=== PATIENT | female | born 1990 | race Caucasian/White ===

== ENCOUNTER 2016-08-13 18:46 | Emergency (ER) | payer OTHER ==
[2016-08-13 19:03] VITALS: BP 109/60; PULSE 79; TEMP 98.1; BMI 18.2
--- NOTE | 2016-08-13 20:21 | PDOC ---
History of Present Illness - General Chief Complaint: Cold Symptoms Stated Complaint: SINUS INFECTION Time Seen by Provider: 08/13/16 20:00 History Source: Patient Exam Limitations: No Limitations - History of Present Illness Initial Comments: 08/13/16 20:15 Patient is here with complaints of frontal and maxillary sinus pressure. Denies fever, denies purulent drainage from her nose, but is concerned about a possible infection. has some crackling in her right ear. His taken no medication other than Tylenol for pain relief. suffers from ALLERGIES but has taken no medication for relief of same. Timing/Duration: reports: changing over time, getting worse Severity: reports: mild Associated Symptoms: reports: denies symptoms, earache, facial pain, headache. denies: cough, dizziness, fever/chills Past History - Travel Traveled outside of the country in the last 30 days: No Close contact w/someone who was outside of country & ill: No - Past Medical History Allergies/Adverse Reactions: Allergies Allergy/AdvReac Type Severity Reaction Status Date / Time No Known Drug Allergies Allergy Verified 08/13/16 18:59 GENERAL ANESTHESIA AdvReac Severe Uncoded 08/13/16 18:59 Home Medications: Ambulatory Orders Fluticasone Propionate [Flovent Diskus] 250 mcg IH PRN 01/14/16 Clobetasol Propionate/Emoll [Clobetasol Emollient 0.05% Crm] 45 gm TP BID #1 cream..g. 05/19/16 Cetirizine HCl/Pseudoephedrine [Allergy+Congestion Relf-D Tab] 1 each PO DAILY # 30 tab 08/13/16 Anemia: No Asthma: Yes Cancer: No Cardiac Disorders: No CVA: No COPD: No CHF: No Dementia: No Diabetes: No (? HYPOGLYCEMIA) GI Disorders: No Disorders: No HTN: No (?HYPOTENSION) Hypercholesterolemia: No Liver Disease: No Seizures: No Thyroid Disease: No - Surgical History Orthopedic Surgery: Yes (FOOT SURGERY @13Y/O IN [facility]) - Immunization History Immunization Up to Date: Yes - Psycho/Social/Smoking Cessation Hx Anxiety: No Suicidal Ideation: No Smoking History: Never smoked Have you smoked in the past 12 months: No Information on smoking cessation initiated: No Hx Alcohol Use: No Drug/Substance Use Hx: No Substance Use Type: None Respiratory Specific PMHX - Complaint Specific PMHX Angina: No Review of Systems - Review of Systems Able to Perform ROS?: Yes Is the patient limited [place] proficient: Yes Constitutional: Yes: Symptoms Reported, See HPI, Malaise. No: Fever, Loss of Appetite HEENTM: Yes: Symptoms Reported, See HPI, Eye Pain, Nose Congestion Respiratory: Yes: Cough. No: Wheezing ABD/GI: No: Symptoms Reported Musculoskeletal: No: Symptoms Reported All Other Systems: Reviewed and Negative *Physical Exam - Vital Signs Last Vital Signs Temp Pulse Resp BP Pulse Ox 98.1 F 79 18 109/60 100 08/13/16 19:00 08/13/16 19:00 08/13/16 19:00 08/13/16 19:00 08/13/16 19:00 - Physical Exam General Appearance: Yes: Nourished, Appropriately Dressed, Apparent Distress HEENT: positive: PETER, Rhinorrhea. negative: TMs Normal (congested but landmarks visualized ), Pharynx Normal, Pharyngeal Erythema (cobblestone appearance prominent), Tonsillar Erythema Neck: positive: Supple. negative: Tender, Lymphadenopathy (R), Lymphadenopathy (L) Respiratory/Chest: positive: Lungs Clear, Normal Breath Sounds. 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 No evidence of bacterial infection therefore we'll treat congestion with antihistamines and decongestants and conservative measures. Will refer to ENT *DC/Admit/Observation/Transfer Diagnosis at time of Disposition: Sinus headache Allergic rhinitis Qualifiers: Allergic rhinitis seasonality: unspecified seasonality Allergic rhinitis trigger: unspecified Qualified Code(s): J30.9 - Allergic rhinitis, unspecified - Discharge Dispostion Disposition: HOME Condition at time of disposition: Stable Admit: No - Patient Instructions Printed Discharge Instructions: DI for Allergic Rhinitis Additional Instructions: Rest, drink lots of fluids: Teas, water, soups Saltwater gargles. Consider humidifier in room at night Steamy showers/seem to face break up mucus Avoid contact with allergens, exposure to pollens, close windows on a windy day Lots of handwashing and good hygiene Continue [id number] medications for symptomatic relief- may use allergic eyedrops for itching I Continue antihistamines daily until pollen season is over; Zyrtec, Claritin, Fannie during the daytime and Benadryl at nighttime as will make sleepy Tylenol or Motrin for fever and pain Followup with private physician in one to 2 days as needed Consider following up with an purchasing officer/multiplex operator for skin testing and possible allergy shots Return to emergency department for worsened symptoms, fevers, dehydration
[2016-08-13] MEDS ORDERED: KETOROLAC TROMETHAMINE 60 MG/2 ML VIAL ONE (20:32)
[2016-08-13] MEDS ORDERED: KETOROLAC TROMETHAMINE 60 MG/2 ML VIAL IM ONE (21:21)
== END 2016-08-13 21:25 | disposition home or self-care (01) ==
LOC: JERFT 18:46
PROC: 3E0233Z Introduction of Anti-inflammatory into Muscle, Percutaneous Approach (ICD-10-PCS; principal; 2016-08-13)
DX: J30.89 Other allergic rhinitis (principal)
CPT/HCPCS: 96372; 99281-25

== ENCOUNTER 2016-08-21 01:36 | Emergency (ER) | payer OTHER ==
[2016-08-21 01:50] VITALS: BP 123/85; PULSE 82; TEMP 98; BMI 18.2
--- NOTE | 2016-08-21 02:40 | PDOC ---
History of Present Illness - General Stated Complaint: ALLERGIC REACTION Time Seen by Provider: 08/21/16 01:44 History Source: Patient, Significant Other Exam Limitations: No Limitations - History of Present Illness Initial Comments: 08/21/16 02:35 26yo Female patient presents to ED c/o allergic reaction. Patient states she is allergic to general anesthesia, and she tried to put oragel on buccal cold sore approx 1.5 hours ago. Patient called 911 when she began to experience palpitations, and numb throat. Denies any other complaints at this time. LNMP: 2 weeks ago. Timing/Duration: 1-3 hours Severity: moderate Modifying Factors: worse with: cold therapy, eating, immobilization, medication , movement, rest, other Associated Symptoms: reports: other (Palpitations ). denies: cough, fever/ chills, headaches, nausea/vomiting, seizure, shortness of breath, weakness Past History - Travel Traveled outside of the country in the last 30 days: No Close contact w/someone who was outside of country & ill: No - Past Medical History Allergies/Adverse Reactions: Allergies Allergy/AdvReac Type Severity Reaction Status Date / Time No Known Drug Allergies Allergy Verified 08/13/16 18:59 GENERAL ANESTHESIA AdvReac Severe Uncoded 08/13/16 18:59 Home Medications: Ambulatory Orders Fluticasone Propionate [Flovent Diskus] 250 mcg IH PRN 01/14/16 Clobetasol Propionate/Emoll [Clobetasol Emollient 0.05% Crm] 45 gm TP BID #1 cream..g. 05/19/16 Cetirizine HCl/Pseudoephedrine [Allergy+Congestion Relf-D Tab] 1 each PO DAILY # 30 tab 08/13/16 Anemia: No Asthma: Yes Cancer: No Cardiac Disorders: No CVA: No COPD: No CHF: No DVT: No Dementia: No Diabetes: No (? HYPOGLYCEMIA) Dialysis: No GI Disorders: No Disorders: No HTN: No (?HYPOTENSION) Hypercholesterolemia: No HIV: No Kidney Stones: No Liver Disease: No Psychiatric Problems: No Seizures: No Thyroid Disease: No Lung CA: No - Surgical History Abdominal Surgery: No Appendectomy: No Cardiac Surgery: No Cholecystectomy: No Gastric Stapling: No GI Surgery: No Lung Surgery: No Orthopedic Surgery: Yes (FOOT SURGERY @13Y/O IN [place]) - Immunization History Td Vaccination: Yes Immunization Up to Date: Yes - Psycho/Social/Smoking Cessation Hx Anxiety: No Suicidal Ideation: No Smoking History: Never smoked Have you smoked in the past 12 months: No Information on smoking cessation initiated: No Hx Alcohol Use: No Drug/Substance Use Hx: No Substance Use Type: None Review of Systems - Review of Systems Able to Perform ROS?: Yes Is the patient limited Spanish proficient: No Constitutional: No: Chills, Fever HEENTM: Yes: Other (Cold Sore). No: Blurred Vision, Double Vision, Nose Congestion, Throat Pain, Throat Swelling, Mouth Pain, Dental Problems, Difficulty Swallowing, Mouth Swelling Respiratory: No: Cough, Shortness of Breath, Stridor, Wheezing Cardiac (ROS): Yes: Palpitations. No: Chest Pain, Lightheadedness, Chest Tightness ABD/GI: No: Constipated, Diarrhea, Nausea, Poor Appetite, Poor Fluid Intake, Vomiting Musculoskeletal: No: Back Pain Integumentary: No: Erythema Neurological: No: Headache, Numbness, Paresthesia, Seizure, Tingling, Tremors, Weakness, Unsteady Gait, Ataxia All Other Systems: Reviewed and Negative *Physical Exam - Vital Signs Last Vital Signs Temp Pulse Resp BP Pulse Ox 98 F 82 18 123/85 100 08/21/16 01:38 08/21/16 01:38 08/21/16 01:38 08/21/16 01:38 08/21/16 01:38 - Physical Exam General Appearance: Yes: Nourished, Appropriately Dressed. No: Apparent Distress, Mild Distress, Moderate Distress, Severe Distress HEENT: positive: EOMI, PETER, Normal ENT Inspection, Normal Voice, Symmetrical, TMs Normal, Pharynx Normal. negative: Nasal Congestion, Rhinorrhea, Sinus Tenderness, TM Bulging, TM Dull, TM Erythema, Excessive drooling Neck: positive: Trachea midline, Normal Thyroid, Supple. negative: Stridor, Lymphadenopathy (R), Lymphadenopathy (L), Rigidity Respiratory/Chest: positive: Lungs Clear, Normal Breath Sounds. negative: Respiratory Distress, Accessory Muscle Use, Labored Respiration, Rapid RR, Rhonchi, Stridor, Wheezing Cardiovascular: positive: Regular Rhythm, Regular Rate. negative: Edema, JVD Gastrointestinal/Abdominal: positive: Normal Bowel Sounds, Soft. negative: Distended, Guarding, Rebound, Tenderness Musculoskeletal: positive: Normal Inspection. negative: CVA Tenderness Extremity: positive: Normal Capillary Refill, Normal Inspection, Normal Range of Motion. negative: Pedal Edema, Swelling Integumentary: positive: Normal Color, Dry, Warm. 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 RETURN IF SYMPTOMS WORSEN OR ANY CONCERNS FOR FURTHER EVALUATION. COLD LIQUIDS FOR COLD SORE IN MOUTH. NO HOT LIQUIDS. SYMPTOMS SHOULD PAST WITHIN 5-7 DAYS MORE. Print Language: CHINESE - Post Discharge Activity Work/School Note: Back to Work
[2016-08-21 03:11] LABS: URINE APPEARANCE CLEAR; URINE BILIRUBIN NEGATIVE (NEGATIVE); URINE BLOOD NEGATIVE (NEGATIVE); URINE COLOR STRAW; URINE GLUCOSE (UA) NEGATIVE (NEGATIVE); URINE KETONE NEGATIVE (NEGATIVE); URINE LEUK ESTERASE NEGATIVE (NEGATIVE); URINE NITRITE NEGATIVE (NEGATIVE); URINE PROTEIN NEGATIVE (NEGATIVE); URINE UROBILINOGEN NEGATIVE E.U./dl (0.2-1.0)
== END 2016-08-21 03:37 | disposition home or self-care (01) ==
LOC: JER 01:36
DX: R00.2 Palpitations (principal); T39.8X5A Adverse effect of other nonopioid analgesics and antipyretics, not elsewhere classified, initial encounter; Y92.038 Other place in apartment as the place of occurrence of the external cause
CPT/HCPCS: 81003; 84703; 99282-25

== ENCOUNTER 2016-10-25 22:45 | Emergency (ER) | payer OTHER ==
[2016-10-26 02:10] VITALS: BP 107/70; PULSE 113; TEMP 98.2; BMI 18.2
[2016-10-26] MEDS ORDERED: IBUPROFEN 600 MG TABLET (FP) PO ONE ×2 (02:26→03:03)
--- NOTE | 2016-10-26 03:30 | PDOC ---
[id number] [id number] RESPIRATORY Time Seen by Provider: 10/26/16 02:03 History Source: Patient - History of Present Illness Initial Comments: 10/26/16 02:29 26 year old female with cough, fever and chest pain x 3 days. seen by pmd today started on ceftin and zyrtec. patient with cough and pain on respiration. patient requesting medication for cough. denies NVD, abdominal pain and urinary symptoms. no pmhx Past History - Past Medical History Allergies/Adverse Reactions: Allergies Allergy/AdvReac Type Severity Reaction Status Date / Time No Known Drug Allergies Allergy Verified 08/13/16 18:59 GENERAL ANESTHESIA AdvReac Severe Uncoded 08/13/16 18:59 Home Medications: Ambulatory Orders Cefuroxime Axetil [Cefuroxime] 500 mg PO BID 10/26/16 Cetirizine HCl [Zyrtec -] 10 mg PO DAILY 10/26/16 Fluticasone Prop 0.05% Nasal [Flonase -] 1 - 2 spray NS BID #1 spray.pump Guaifenesin/Dextromethorphan [Congesta Dm 400-20 mg Tab] 1 each PO BID #10 tablet 10/26/16 Guaifenesin AC [Robitussin AC] 10 ml PO TID #100 ml MDD 30 10/27/16 Oseltamivir Phosphate [Tamiflu -] 75 mg PO BID #10 capsule 10/27/16 Ondansetron [Ondansetron Odt] 8 mg PO TID #30 tab.rapdis 10/28/16 Anemia: No Asthma: Yes Cancer: No Cardiac Disorders: No CVA: No COPD: No CHF: No DVT: No Dementia: No Diabetes: No (? HYPOGLYCEMIA) Dialysis: No GI Disorders: No Disorders: No HTN: No (?HYPOTENSION) Hypercholesterolemia: No HIV: No Kidney Stones: No Liver Disease: No Psychiatric Problems: No Seizures: No Thyroid Disease: No Lung CA: No - Surgical History Abdominal Surgery: No Appendectomy: No Cardiac Surgery: No Cholecystectomy: No Gastric Stapling: No GI Surgery: No Lung Surgery: No Orthopedic Surgery: Yes (FOOT SURGERY @13Y/O IN [facility] [place]) - Immunization History Td Vaccination: Yes Immunization Up to Date: Yes - Psycho/Social/Smoking Cessation Hx Anxiety: No Suicidal Ideation: No Smoking History: Unknown if ever smoked Have you smoked in the past 12 months: No Information on smoking cessation initiated: No Hx Alcohol Use: No Drug/Substance Use Hx: No Substance Use Type: None Respiratory Specific PMHX - Complaint Specific PMHX Angina: No Review of Systems - Review of Systems Constitutional: Yes: Chills, Fever HEENTM: Yes: Throat Pain Respiratory: Yes: Cough, Productive cough Cardiac (ROS): No: Symptoms Reported, See HPI, Chest Pain, Edema, Irregular Heart Rate, Lightheadedness, Palpitations, Syncope, Chest Tightness, Other ABD/GI: No: Symptoms Reported, See HPI, Abdominal Distended, Abd. Pain w/ defecation, Blood Streaked Bowels, Constipated, Diarrhea, Difficulty Swallowing , Nausea, Poor Appetite, Poor Fluid Intake, Rectal Bleeding, Vomiting, Indigestion, Abdominal cramping, Tarry Stools, Other : No: Symptoms Reported, See HPI, Burning, Dysuria, Discharge, Frequency, Flank Pain, Hematuria, Incontinence, Pain, Urgency, Testicular Mass, Testicular Swelling, Lesions, Testicular Pain, Other *Physical Exam - Vital Signs Last Vital Signs Temp Pulse Resp BP Pulse Ox 98.2 F 113 H 14 107/70 100 10/26/16 02:08 10/26/16 02:08 10/26/16 02:08 10/26/16 02:08 10/26/16 02:08 - Physical Exam General Appearance: Yes: Appropriately Dressed HEENT: positive: Pharyngeal Erythema ( with exudate) Respiratory/Chest: positive: Lungs Clear, Normal Breath Sounds Cardiovascular: positive: Regular Rhythm, Regular Rate Gastrointestinal/Abdominal: positive: Normal Bowel Sounds, Soft Musculoskeletal: positive: Normal Inspection Extremity: positive: Normal Capillary Refill, Normal Inspection, Normal Range of Motion Integumentary: positive: Normal Color, Dry, Warm Neurologic: positive: Fully Oriented, Alert ED Treatment Course - RADIOLOGY Chest X-Ray Result: No Infiltrates Radiograph Interpretation: official read pending Progress Note - Progress Note Progress Note: A: bronchitis ? vs. viral illness P: chest xray robitussin ibuprofen continue oral hydration and supportive care continue ceftin. close pmd follow up *DC/Admit/Observation/Transfer Diagnosis at time of Disposition: Bronchitis - Discharge Dispostion Disposition: HOME - Prescriptions Prescriptions: Fluticasone Prop 0.05% Nasal [Flonase -] 1 - 2 spray NS BID #1 spray.pump Guaifenesin/Dextromethorphan [Congesta Dm 400-20 mg Tab] 1 each PO BID #10 tablet - Referrals Referrals: Wiliam Hernandez [Primary Care Provider] - - Patient Instructions Printed Discharge Instructions: DI for Acute Bronchitis Additional Instructions: continue taking antibiotics and zyrtec as prescribed by your pmd. take flonase x 3 days twice daily. follow up with your doctor as soon as possible.
[2016-10-26] MEDS ORDERED: guaiFENesin/D-METHORPHAN HB 10 ML UNIT-DOSE CUPS PO ONE (03:44)
[2016-10-26] MEDS ORDERED: guaiFENesin/D-METHORPHAN HB 10 ML UNIT-DOSE CUPS ONE (04:03)
== END 2016-10-26 04:08 | disposition home or self-care (01) ==
LOC: JER 22:45
DX: J20.9 Acute bronchitis, unspecified (principal)
CPT/HCPCS: 71020-TC; 84703; 87070; 87430; 99281-25

== ENCOUNTER 2016-10-27 15:14 | Emergency (ER) | payer OTHER ==
[2016-10-27 15:25] VITALS: BP 112/77; BMI 18.2
[2016-10-27] MEDS ORDERED: SODIUM CHLORIDE FOR INHALATION 3 ML VIAL.NEB IH ONE (17:40)
[2016-10-27] MEDS ORDERED: guaiFENesin/CODEINE 10 ML UNIT-DOSE CUPS PO ONE (17:41)
--- NOTE | 2016-10-27 17:41 | PDOC ---
History of Present Illness - General Chief Complaint: Cold Symptoms Stated Complaint: SOB (ASTHMA) Time Seen by Provider: 10/27/16 17:17 History Source: Patient Exam Limitations: No Limitations - History of Present Illness Initial Comments: CHIEF COMPLAINT: 26 y/o febrile, tachycardic female with PMH asthma c/o cough and body aches for the past 5 days. HISTORY OF PRESENT ILLNESS: The patient states she started with a dry cough and fever on Tuesday. She also admits to runny nose, nasal congestion and body aches. She had left over Ceftin in her house and started taking it for her symptoms, thinking she had bronchitis. She is taking tylenol every 4 hours but states her symptoms have not improved and her cough just won't stop, despite being prescribed cough medicine here yesterday. The patient did not get the flu shot this year. Vital signs on arrival are notable for pulse of 122 secondary to temp of 100.2. REVIEW OF SYSTEMS: GENERAL/CONSTITUTIONAL: + fever/chills. No weakness. No weight change. +body aches HEAD, EYES, EARS, NOSE AND THROAT: No change in vision. +earache. +sore throat. +runny nose and nasal congestion CARDIOVASCULAR: +post tussive chest pain. No shortness of breath. RESPIRATORY: +dry cough. No wheezing, or hemoptysis. GASTROINTESTINAL: No nausea, vomiting, diarrhea, constipation. GENITOURINARY: No dysuria, frequency, or change in urination. MUSCULOSKELETAL: No joint or muscle swelling or pain. No neck or back pain. SKIN: No rash or easy bruising. NEUROLOGIC: No headache, vertigo, loss of consciousness, or loss of sensation. PHYSICAL EXAM: GENERAL: The patient is awake, alert, and fully oriented, in no acute distress. She is non toxic but ill appearing. She has a persistent dry, hacking cough. HEAD: Normal with no signs of trauma. ENT: Pupils equal, round and reactive to light, extraocular movements intact, sclera anicteric, conjunctiva clear. Neck supple. No tonsilar edema, erythema or exudate. TMs normal b/l. Mucous membranes moist. LUNGS: Clear to auscultation bilaterally. Normal excursion. No respiratory distress or use of accessory muscles. CV: RRR, S1/S2, no MRG. Cap refill < 2 sec. ABDOMEN: Soft, non-distended, non-tender even to deep palpation, no hepatomegaly or splenomegaly, no masses. EXTREMITIES: Normal range of motion, no edema. NEUROLOGICAL: Normal speech, normal gait. CN II-XII grossly intact. PSYCH: Normal mood, normal affect. SKIN: Warm, dry, normal turgor, no rashes or lesions noted. Past History - Past Medical History Allergies/Adverse Reactions: Allergies Allergy/AdvReac Type Severity Reaction Status Date / Time No Known Drug Allergies Allergy Verified 10/27/16 15:25 GENERAL ANESTHESIA AdvReac Severe Uncoded 10/27/16 15:25 Home Medications: Ambulatory Orders Cefuroxime Axetil [Cefuroxime] 500 mg PO BID 10/26/16 Cetirizine HCl [Zyrtec -] 10 mg PO DAILY 10/26/16 Fluticasone Prop 0.05% Nasal [Flonase -] 1 - 2 spray NS BID #1 spray.pump Guaifenesin/Dextromethorphan [Congesta Dm 400-20 mg Tab] 1 each PO BID #10 tablet 10/26/16 Guaifenesin AC [Robitussin AC] 10 ml PO TID #100 ml MDD 30 10/27/16 Oseltamivir Phosphate [Tamiflu -] 75 mg PO BID #10 capsule 10/27/16 Anemia: No Asthma: Yes Cancer: No Cardiac Disorders: No CVA: No COPD: No CHF: No DVT: No Dementia: No Diabetes: No (? HYPOGLYCEMIA) Dialysis: No GI Disorders: No Disorders: No HTN: No (?HYPOTENSION) Hypercholesterolemia: No HIV: No Kidney Stones: No Liver Disease: No Psychiatric Problems: No Seizures: No Thyroid Disease: No Lung CA: No - Surgical History Abdominal Surgery: No Appendectomy: No Cardiac Surgery: No Cholecystectomy: No Gastric Stapling: No GI Surgery: No Lung Surgery: No Orthopedic Surgery: Yes (FOOT SURGERY @13Y/O IN [facility] [place]) - Immunization History Td Vaccination: Yes Immunization Up to Date: Yes - Psycho/Social/Smoking Cessation Hx Anxiety: No Suicidal Ideation: No Smoking History: Never smoked Have you smoked in the past 12 months: No Hx Alcohol Use: No Drug/Substance Use Hx: No Substance Use Type: None Respiratory Specific PMHX - Complaint Specific PMHX Angina: No *Physical Exam - Vital Signs Last Vital Signs Temp Pulse Resp BP Pulse Ox 100.2 F H 122 H 20 112/77 98 10/27/16 15:20 10/27/16 15:20 10/27/16 15:20 10/27/16 15:20 10/27/16 15:20 Medical Decision Making - Medical Decision Making A/P: 26 y/o febrile female with signs and symptoms of the flu. Plan is as follows: 1. hcg 2. CXR 3. Saline neb 4. Influenza 5. Robitussin AC hcg - negative Influenza B - Positive Vital signs have improved slightly. Informed the patient of her results. Will send Rx for tamiflu and robitussin with codeine. Suggested she alternate between tylenol and motrin every 3 hours for fever, drink plenty of fluids, get lots of rest and return to the ER with any worsening or concerning symptoms. The patient verbalizes understanding of all instructions, has no further questions and is awaiting discharge. *DC/Admit/Observation/Transfer Diagnosis at time of Disposition: Influenza B - Discharge Dispostion Disposition: HOME Condition at time of disposition: Improved - Prescriptions Prescriptions: Guaifenesin AC [Robitussin AC] 10 ml PO TID #100 ml MDD 30 Oseltamivir Phosphate [Tamiflu -] 75 mg PO BID #10 capsule - Referrals Referrals: Wiliam Hernandez [Primary Care Provider] - - Patient Instructions Printed Discharge Instructions: DI for H1N1 Influenza -- Adult Additional Instructions: Discharge Instructions: -You have Influenza B; Tamiflu has been sent to your pharmacy -Alternate between 650mg of tylenol and 600mg of Motrin every 3 hours for fever -Take cough medicine as prescribed; may cause drowsiness -Drink plenty of fluids and get lots of rest -Return to the ER with any worsening or concerning symptoms - Post Discharge Activity Work/School Note: Back to Work
[2016-10-27] MEDS ORDERED: guaiFENesin/CODEINE 5 ML UNIT-DOSE CUPS PO ONE (17:58)
[2016-10-27 19:05] VITALS: PULSE 110; TEMP 100.1
[2016-10-27] MEDS ORDERED: IBUPROFEN 600 MG TABLET (FP) PO ONE ×2 (19:10→19:11)
== END 2016-10-27 19:13 | disposition home or self-care (01) ==
LOC: JERFT 15:14
DX: J10.1 Influenza due to other identified influenza virus with other respiratory manifestations (principal)
CPT/HCPCS: 71020-TC; 84703; 87804; 99281-25

== ENCOUNTER → 2016-10-28 | Emergency (ER) | payer OTHER ==
[~2016-10-28] MED LIST: LIDOCAINE VISCOUS 2% ORAL/TOP 20 ML UNIT-DOSE CUP MM ONE; ONDANSETRON *ODT* 4 MG TABLET SL ONE; ONDANSETRON 8 MG TABLET (FP) PO ONE; RANITIDINE HCL 150 MG TABLET (FP) ONE; RANITIDINE HCL 150 MG/10 ML UNIT-DOSE CUP PO ONE; diphenhydrAMINE HCL 12.5 MG/5 ML BULK BOTTLE ONE; diphenhydrAMINE HCL 12.5 MG/5 ML UNIT-DOSE CUPS PO ONE; diphenhydrAMINE HCL 25 MG CAPSULE (FP) PO ONE
[2016-10-28 17:26] VITALS: BP 112/64; PULSE 89; TEMP 98.6; BMI 18.2
--- NOTE | 2016-10-28 17:31 | PDOC ---
History of Present Illness - History of Present Illness Initial Comments: 10/28/16 18:30 The patient is a 26 year old female, with a significant past medical history of GERD, who presents to the emergency department with nausea, vomiting, and intermittent upper abdominal pain since yesterday. The patient states she was seen in the ED a couple of days ago and was diagnosed with Influenza B. She reports numerous episodes of vomiting in the past 24 hours. The patient states her symptoms are exacerbated after eating, but she reports she can not hold down fluids or solid food without vomiting. The patient states she is also experiencing chills. She denies chest pain, shortness of breath, headache and dizziness. She denies fever, diarrhea and constipation. She denies dysuria, frequency, urgency and hematuria. <Jojo Sequeira - Last Filed: 10/28/16 18:30> <Wes Iyer - Last Filed: 10/28/16 20:27> - General Chief Complaint: Pain, Acute Stated Complaint: VOMITING Past History <Jojo Sequeira - Last Filed: 10/28/16 18:30> - Past Medical History Anemia: No Asthma: Yes Cancer: No Cardiac Disorders: No CVA: No COPD: No CHF: No DVT: No Dementia: No Diabetes: (? HYPOGLYCEMIA) Dialysis: No GI Disorders: No Disorders: No HTN: (?HYPOTENSION) Hypercholesterolemia: No HIV: No Kidney Stones: No Liver Disease: No Psychiatric Problems: No Seizures: No Thyroid Disease: No Lung CA: No - Surgical History Abdominal Surgery: (LEEP) Appendectomy: No Cardiac Surgery: No Cholecystectomy: No Gastric Stapling: No GI Surgery: No Lung Surgery: No Orthopedic Surgery: Yes (FOOT SURGERY @13Y/O IN [facility]) - Immunization History Td Vaccination: Yes Immunization Up to Date: Yes - Psycho/Social/Smoking Cessation Hx Anxiety: No Suicidal Ideation: No Smoking History: Never smoked Have you smoked in the past 12 months: No Hx Alcohol Use: No Drug/Substance Use Hx: No Substance Use Type: None <Wes Iyer - Last Filed: 10/28/16 20:27> - Past Medical History Allergies/Adverse Reactions: Allergies Allergy/AdvReac Type Severity Reaction Status Date / Time No Known Drug Allergies Allergy Verified 10/28/16 18:31 GENERAL ANESTHESIA AdvReac Severe Uncoded 10/28/16 17:19 Home Medications: Ambulatory Orders Cefuroxime Axetil [Cefuroxime] 500 mg PO BID 10/26/16 Cetirizine HCl [Zyrtec -] 10 mg PO DAILY 10/26/16 Fluticasone Prop 0.05% Nasal [Flonase -] 1 - 2 spray NS BID #1 spray.pump Guaifenesin/Dextromethorphan [Congesta Dm 400-20 mg Tab] 1 each PO BID #10 tablet 10/26/16 Guaifenesin AC [Robitussin AC] 10 ml PO TID #100 ml MDD 30 10/27/16 Oseltamivir Phosphate [Tamiflu -] 75 mg PO BID #10 capsule 10/27/16 Ondansetron [Ondansetron Odt] 8 mg PO TID #30 tab.rapdis 10/28/16 Review of Systems - Review of Systems Able to Perform ROS?: Yes Comments:: 10/28/16 18:33 GENERAL/CONSTITUTIONAL:(+) chills. No fever. No weakness. HEAD, EYES, EARS, NOSE AND THROAT: No change in vision. No ear pain or discharge. No sore throat. CARDIOVASCULAR: No chest pain or shortness of breath. RESPIRATORY: No cough, wheezing, or hemoptysis. GASTROINTESTINAL: (+) nausea, vomiting, and intermittent abdominal pain. No diarrhea or constipation. GENITOURINARY: No dysuria, frequency, or change in urination. MUSCULOSKELETAL: No joint or muscle swelling or pain. No neck or back pain. SKIN: No rash NEUROLOGIC: No headache, vertigo, loss of consciousness, or change in strength/ sensation. ENDOCRINE: No increased thirst. No abnormal weight change. HEMATOLOGIC/LYMPHATIC: No anemia, easy bleeding, or history of blood clots. ALLERGIC/IMMUNOLOGIC: No hives or skin allergy. <Jojo Sequeira - Last Filed: 10/28/16 18:30> *Physical Exam - Vital Signs Last Vital Signs Temp Pulse Resp BP Pulse Ox 98.6 F 89 18 112/64 96 10/28/16 17:14 10/28/16 17:14 10/28/16 17:14 10/28/16 17:14 10/28/16 17:14 - Physical Exam Comments: 10/28/16 18:33 GENERAL: Awake, alert, and fully oriented, in no acute distress HEAD: No signs of trauma EYES: PERRLA, EOMI, sclera anicteric, conjunctiva clear ENT: Auricles normal inspection, hearing grossly normal, nares patent, oropharynx clear without exudates. Moist mucosa NECK: Normal ROM, supple, no lymphadenopathy, JVD, or masses LUNGS: Breath sounds equal, clear to auscultation bilaterally. No wheezes, and no crackles HEART: Regular rate and rhythm, normal S1 and S2, no murmurs, rubs or gallops ABDOMEN: Soft, nontender, normoactive bowel sounds. No guarding, no rebound. No masses EXTREMITIES: Normal range of motion, no edema. No clubbing or cyanosis. No cords, erythema, or tenderness NEUROLOGICAL: Cranial nerves II through XII grossly intact. Normal speech, normal gait SKIN: Warm, Dry, normal turgor, no rashes or lesions noted. <Jojo Sequeira - Last Filed: 10/28/16 18:30> - Vital Signs Last Vital Signs Temp Pulse Resp BP Pulse Ox 98.6 F 89 18 112/64 96 10/28/16 17:14 10/28/16 17:14 10/28/16 17:14 10/28/16 17:14 10/28/16 17:14 <Wes Iyer - Last Filed: 10/28/16 20:27> *DC/Admit/Observation/Transfer - Attestations Scribe Attestion: 10/28/16 18:34 Documentation prepared by Jojo Sequeira, acting as electromedical service engineer for Wes Iyer MD <Jojo Sequeira - Last Filed: 10/28/16 18:30> - Discharge Dispostion Admit: No - Attestations Physician Attestion: 10/28/16 17:30 I, Dr. Wes Iyer, attest that this document has been prepared under my direction and personally reviewed by me in its entirety. I further attest, that it accurately reflects all work, treatment, procedures and medical decision -making performed by me. <Wes Iyer - Last Filed: 10/28/16 20:27> Diagnosis at time of Disposition: Influenza B Nausea & vomiting Qualifiers: Vomiting type: unspecified Vomiting Intractability: unspecified Qualified Code( s): R11.2 - Nausea with vomiting, unspecified - Discharge Dispostion Disposition: HOME Condition at time of disposition: Good - Prescriptions Prescriptions: Ondansetron [Ondansetron Odt] 8 mg PO TID #30 tab.rapdis - Referrals Referrals: Gypsy Hernandez MD [Primary Care Provider] - - Patient Instructions Printed Discharge Instructions: Influenza, DI for Influenza -- Adult Additional Instructions: Maggie I am sorry that this is so awful. It is absolutely miserable to have to go through over a week a sick days... TamiFlu is a great technology, but is only lessens the symptoms of the flu, it does not actually kill the flu virus. Take cood care of your self and keep your fever down and your hydration levels up. You can have the Zofran ODT three times a day about eight hours apart. Hope you feel better soon. Best- Dr. Wes Iyer - Post Discharge Activity Work/School Note: Back to Work
== END | disposition home or self-care (01) ==
LOC: JER 16:57
DX: J10.1 Influenza due to other identified influenza virus with other respiratory manifestations (principal)
CPT/HCPCS: 99281-25

== ENCOUNTER 2017-02-04 14:56 | Emergency (ER) | payer OTHER ==
[2017-02-04 15:11] VITALS: BP 124/74; PULSE 104; TEMP 98.2; BMI 18.2
[2017-02-04 15:40] LABS: URINE APPEARANCE CLEAR; URINE BILIRUBIN NEGATIVE (NEGATIVE); URINE BLOOD NEGATIVE (NEGATIVE); URINE COLOR LTYELLOW; URINE GLUCOSE (UA) 3+ (NEGATIVE); URINE KETONE TRACE (NEGATIVE); URINE LEUK ESTERASE NEGATIVE (NEGATIVE); URINE NITRITE NEGATIVE (NEGATIVE); URINE PROTEIN NEGATIVE (NEGATIVE); URINE UROBILINOGEN NEGATIVE mg/dL (0.2-1.0)
--- NOTE | 2017-02-04 16:11 | PDOC ---
History of Present Illness - General Chief Complaint: Lightheaded Stated Complaint: LOW BP (12 WKS ) Time Seen by Provider: 02/04/17 15:22 - History of Present Illness Initial Comments: 02/04/17 15:56 Ms. Beltrán is a 26 yo F with no significant pmh who presents with lightheadedness. Pt. reports recent episode of lightheadedness while sitting down at work (employed at [employer]) . Episode resolved spontaneously after two hours and co workers measured blood pressure to be 93/ 53. Pt. also experienced transient cold temperature change in BL UE at fingertips. She reports ongoing 1 year h/o lightheaded spells, which have been attributed to hypoglycemia in the past. Pt. currently at 12 weeks gestation and denies vaginal bleeding, but complains of ongoing left quadrant discomfort. She endorses bilateral tension like ROSAS's for past 2 days worse at night, but Denies blurry vision, LOC, Vertigo, SOB, and cough. Denies fevers/ chills, urinary complaints, and chest pain. States that she has maintained adequate fluid hydration with 32 oz water per day and caffeine consumption of 1 cup coffee per day. Pt. denies changes in diet despite frequent nausea attributed to , and consumes three medium to large meals per day. 02/04/17 17:12 Past History - Past Medical History Allergies/Adverse Reactions: Allergies Allergy/AdvReac Type Severity Reaction Status Date / Time No Known Drug Allergies Allergy Verified 10/28/16 18:31 GENERAL ANESTHESIA AdvReac Severe Uncoded 10/28/16 17:19 Home Medications: Ambulatory Orders NK [No Known Home Medication] 02/04/17 Anemia: No Asthma: Yes Cancer: No Cardiac Disorders: No CVA: No COPD: No CHF: No DVT: No Dementia: No Diabetes: No (? HYPOGLYCEMIA) Dialysis: No GI Disorders: No Disorders: No HTN: No (?HYPOTENSION) Hypercholesterolemia: No HIV: No Kidney Stones: No Liver Disease: No Psychiatric Problems: No Seizures: No Thyroid Disease: No Lung CA: No - Surgical History Abdominal Surgery: No Appendectomy: No Cardiac Surgery: No Cholecystectomy: No Gastric Stapling: No GI Surgery: No Lung Surgery: No Orthopedic Surgery: Yes (FOOT SURGERY @13Y/O IN [facility]) - Immunization History Td Vaccination: Yes Immunization Up to Date: Yes - Psycho/Social/Smoking Cessation Hx Anxiety: No Suicidal Ideation: No Smoking History: Never smoked Have you smoked in the past 12 months: No Hx Alcohol Use: No Drug/Substance Use Hx: No Substance Use Type: None Review of Systems - Review of Systems Comments:: 02/04/17 16:12 GENERAL/CONSTITUTIONAL: No fever or chills. No weakness. HEAD, EYES, EARS, NOSE AND THROAT: No change in vision. No ear pain or discharge. No sore throat. CARDIOVASCULAR: No chest pain or shortness of breath RESPIRATORY: No cough, wheezing, or hemoptysis. GASTROINTESTINAL: No nausea, vomiting, diarrhea or constipation. GENITOURINARY: No dysuria, frequency, or change in urination. MUSCULOSKELETAL: No joint or muscle swelling or pain. No neck or back pain. SKIN: No rash NEUROLOGIC:+ headache, + lightheadedness. No vertigo, loss of consciousness, or change in strength/sensation. ENDOCRINE: No increased thirst. No abnormal weight change HEMATOLOGIC/LYMPHATIC: No anemia, easy bleeding, or history of blood clots. ALLERGIC/IMMUNOLOGIC: No hives or skin allergy. *Physical Exam - Vital Signs Last Vital Signs Temp Pulse Resp BP Pulse Ox 98.2 F 104 H 18 124/74 100 02/04/17 15:10 02/04/17 15:10 02/04/17 15:10 02/04/17 15:10 02/04/17 15:10 02/04/17 16:37 GENERAL: Awake, alert, and fully oriented, in no acute distress HEAD: No signs of trauma, normocephalic, atraumatic EYES: PERRLA, EOMI, sclera anicteric, conjunctiva clear ENT: Auricles normal inspection, hearing grossly normal, nares patent, oropharynx clear without exudates. Moist mucosa NECK: Normal ROM, supple, no lymphadenopathy, JVD, or masses LUNGS: No distress, speaks full sentences, clear to auscultation bilaterally HEART: Regular rate and rhythm, normal S1 and S2, no murmurs, rubs or gallops, peripheral pulses normal and equal bilaterally. ABDOMEN Slightly tender at LLQ, soft, normoactive bowel sounds. No guarding, no rebound. No masses EXTREMITIES: Normal inspection, Normal range of motion, no edema. No clubbing or cyanosis. NEUROLOGICAL: Cranial nerves II through XII grossly intact. Normal speech, normal gait, no focal sensorimotor deficits SKIN: Warm, Dry, normal turgor, no rashes or lesions noted. ED Treatment Course - LABORATORY CBC & Chemistry Diagram: 02/04/17 16:10 02/04/17 16:10 Medical Decision Making - Medical Decision Making 02/04/17 16:37 MS. Beltrán is a 26 yo F with no significant PMH who presents for lightheadedness. Pt. is stable and currently asymptomatic. Reports longstanding h/o hypoglycemia and complains of recent tension type ROSAS's. Low suspicion for Pre Clampsia or HELLP syndrome in setting of hemodynamic stability. Placental abruption unlikely. Pt. denies blood per vagina, or new onset abdominal pain. Symptoms most likely 2/2 hypoglycemia given pt. history and exclusion of other causes for lightheaded spells. ED course: CBC CMP UA, HCG TSH NS 1L Abdominal U/S *DC/Admit/Observation/Transfer Diagnosis at time of Disposition: Lightheadedness - Discharge Dispostion Disposition: HOME Condition at time of disposition: Improved Admit: No - Patient Instructions Additional Instructions: Return to ED if experience SOB, blurry vision, vision changes, irregular bleeding, or abdominal pain. Thank you for being a kind and patient patient. Congratulations on your . Print Language: MONTENEGRIN - Attestations Physician Attestion: 02/04/17 19:06 I, Dr. Jimy Morin, attest that this document has been prepared under my direction and personally reviewed by me in its entirety. I further attest, that it accurately reflects all work, treatment, procedures and medical decision -making performed by me.
[2017-02-04 16:24] LABS: BASOPHIL 0.3 % (0-2.0); EOSINOPHIL 0.5 % (0-4.5); MCH 32.1 pg (25.7-33.7); MCHC 34.3 g/dl (32.0-36.0); MEAN CELL VOLUME 93.7 fl (80-96); MEAN PLT VOLUME 8.2 fl (7.5-11.1); NEUTROPHILS 81.3 % (42.8-82.8); PLATELET COUNT 212 K/MM3 (134-434); RDW 13.2 % (11.6-15.6); WHITE BLOOD COUNT 11.6 K/mm3 (4.0-10.0)
[2017-02-04] MEDS ORDERED: SODIUM CHLORIDE 0.9% 1000 ML INFUS.BAG IV ONE (16:26)
[2017-02-04 17:14] LABS: ALBUMIN 3.3 g/dl (3.4-5.0); ANION GAP 8 (8-16); BILIRUBIN,TOTAL 0.2 mg/dL (0.2-1.0); CALCIUM 8.8 mg/dL (8.5-10.1); CO2 24 mmol/L (21-32); CREATININE 0.5 mg/dL (0.55-1.02); GLUCOSE,RANDOM 84 mg/dL (74-106); SGPT/ALT 12 U/L (12-78); TOT PROT 6.5 g/dl (6.4-8.2)
[2017-02-04 17:15] LABS: ALK PHOS 53 U/L (45-117)
[2017-02-04 17:17] LABS: SGOT/AST 18 U/L (15-37)
--- NOTE | 2017-02-04 17:29 | PDOC ---
Attending Attestation - Resident Resident Name: Jimy Morin - ED Attending Attestation I have performed the following: I have examined & evaluated the patient, The case was reviewed & discussed with the resident, I agree w/resident's findings & plan, Exceptions are as noted - HPI HPI: 02/04/17 17:25 26 yo F 16 weeks presenting to the ER with lightheadedness She has had a long standing lightheadedness which she was told was due to hypoglycemia Pt eating No vomiting BP 90s/60s when she felt she was lightheaded - Physicial Exam PE: 02/04/17 17:27 RRR CTA Bilaterally No abd tenderness - Medical Decision Making 02/04/17 17:28 Labs wnl BP nml at triage Pt given 1 L NS Will check U/S Will discharge to home Follow up with PMD and OB 02/04/17 17:29 Laboratory Tests 02/04/17 02/04/17 02/04/17 15:30 16:10 16:10 WBC 11.6 H Hgb 12.1 Hct 35.2 Plt Count 212 BUN 7 Creatinine 0.5 L TSH Beta HCG, Quant Urine Blood Negative Urine Nitrite Negative Ur Leukocyte Esterase Negative 02/04/17 02/04/17 16:10 16:10 WBC Hgb Hct Plt Count BUN Creatinine TSH 0.67 Beta HCG, Quant 86583.7 Urine Blood Urine Nitrite Ur Leukocyte Esterase 02/04/17 18:55 Ob U/S : 16 weeks, FHR: 140s Stable for discharge
== END 2017-02-04 19:20 | disposition home or self-care (01) ==
LOC: JER 14:56
DX: O26.891 Other specified pregnancy related conditions, first trimester (principal); Z3A.12 12 weeks gestation of pregnancy; R42 Dizziness and giddiness
CPT/HCPCS: 36415; 76801-TC; 80053; 81003; 84443; 84702; 85025; 87086; 99282-25

== ENCOUNTER 2017-05-02 09:32 | Emergency (ER) | payer OTHER ==
[2017-05-02 09:41] VITALS: BMI 19.9
[2017-05-02] MEDS ORDERED: ALBUTEROL SO4 2.5/IPRATROPIUM 0.5 INH SOL 3 ML VIAL.NEB. NEB ONE ×2 (10:21→10:30)
[2017-05-02] MEDS ORDERED: SODIUM CHLORIDE 1,000 ML IV STA (10:21)
[2017-05-02 10:57] LABS: BASOPHIL 0.3 % (0-2.0); EOSINOPHIL 3.8 % (0-4.5); MCH 32.9 pg (25.7-33.7); MCHC 33.9 g/dl (32.0-36.0); MEAN CELL VOLUME 97.1 fl (80-96); MEAN PLT VOLUME 8.1 fl (7.5-11.1); NEUTROPHILS 76.4 % (42.8-82.8); PLATELET COUNT 194 K/MM3 (134-434); RDW 13.1 % (11.6-15.6); WHITE BLOOD COUNT 10.4 K/mm3 (4.0-10.0)
[2017-05-02 11:12] LABS: ALBUMIN 2.7 g/dl (3.4-5.0); ANION GAP 10 (8-16); CALCIUM 8.5 mg/dL (8.5-10.1); CO2 25 mmol/L (21-32); CREATININE 0.5 mg/dL (0.55-1.02); GLUCOSE,RANDOM 79 mg/dL (74-106); SGOT/AST 24 U/L (15-37); SGPT/ALT 23 U/L (12-78)
[2017-05-02 11:14] LABS: ALK PHOS 74 U/L (45-117); BILIRUBIN,TOTAL 0.2 mg/dL (0.2-1.0); TOT PROT 6.3 g/dl (6.4-8.2)
--- NOTE | 2017-05-02 12:04 | PDOC ---
History of Present Illness - General Chief Complaint: Cold Symptoms Stated Complaint: COUGH Time Seen by Provider: 05/02/17 09:43 - History of Present Illness Initial Comments: 05/02/17 11:59 "The patient is a 26 year old female, , 25 weeks with a significant PMH of asthma who presents to the emergency department with cough and congestion beginning approximately 5 days ago. She describes her cough as productive of green sputum, associated with nasal discharge. The patient reports visiting her PCP last week for these symptoms, and being prescribed Amoxicillin for a sinus infection. However, the patient reports having no relief with the antibiotic. The patient reports subjective fever, chills, and sore throat with her symptoms. She reports her last US was conducted 3 weeks ago that showed normal IUP. The patient denies abnormal vaginal bleeding or discharge. The patient denies chest pain, shortness of breath, headache, and dizziness. Denies dysuria, frequency, urgency, and hematuria. Denies diarrhea, and constipation. Allergies: NKA Past surgical history: Social history: No reported cigarette, alcohol, or drug use. PCP: Dr. Hernandez BAND SEWER: Dr. Ortiz " Past History - Past Medical History Allergies/Adverse Reactions: Allergies Allergy/AdvReac Type Severity Reaction Status Date / Time No Known Drug Allergies Allergy Verified 05/02/17 09:35 GENERAL ANESTHESIA AdvReac Severe Uncoded 05/02/17 09:35 Home Medications: Ambulatory Orders NK [No Known Home Medication] 02/04/17 Anemia: No Asthma: Yes Cancer: No Cardiac Disorders: No CVA: No COPD: No CHF: No DVT: No Dementia: No Diabetes: No (? HYPOGLYCEMIA) Dialysis: No GI Disorders: No Disorders: No HTN: No (?HYPOTENSION) Hypercholesterolemia: No Kidney Stones: No Liver Disease: No Psychiatric Problems: No Seizures: No Thyroid Disease: No Lung CA: No - Surgical History Abdominal Surgery: No Appendectomy: No Cardiac Surgery: No Cholecystectomy: No Gastric Stapling: No GI Surgery: No Lung Surgery: No Orthopedic Surgery: Yes (FOOT SURGERY @13Y/O IN [facility]) - Immunization History Td Vaccination: Yes Immunization Up to Date: Yes - Suicide/Smoking/Psychosocial Hx Smoking History: Never smoked Have you smoked in the past 12 months: No Information on smoking cessation initiated: No Hx Alcohol Use: No Drug/Substance Use Hx: No Substance Use Type: None Respiratory Specific PMHX - Complaint Specific PMHX Angina: No Review of Systems - Review of Systems Comments:: 05/02/17 12:04 "GENERAL/CONSTITUTIONAL: (+) Fever. (+) Chills. No weakness. HEAD, EYES, EARS, NOSE AND THROAT: (+) Sore throat. No change in vision. No ear pain or discharge. CARDIOVASCULAR: (+) Chest tightness. No shortness of breath. RESPIRATORY: (+) Productive cough, green sputum (+) nasal discharge. No wheezing. GASTROINTESTINAL:No, nausea, No diarrhea or constipation. GENITOURINARY: No dysuria, frequency, or change in urination. MUSCULOSKELETAL: No back pain No joint pain. No neck pain. SKIN: No rash NEUROLOGIC: No headache, vertigo, loss of consciousness, or change in strength/ sensation. ENDOCRINE: No increased thirst. No abnormal weight change. HEMATOLOGIC/LYMPHATIC: No anemia, easy bleeding, or history of blood clots. ALLERGIC/IMMUNOLOGIC: No hives or skin allergy. " *Physical Exam - Vital Signs Last Vital Signs Temp Pulse Resp BP Pulse Ox 98.4 F 100 H 18 99/62 100 05/02/17 09:35 05/02/17 09:35 05/02/17 09:35 05/02/17 09:35 05/02/17 09:35 - Physical Exam Comments: 05/02/17 12:05 "GENERAL: Awake, alert, and fully oriented, in no acute distress HEAD: No signs of trauma EYES: PERRLA, EOMI, sclera anicteric, conjunctiva clear ENT: (+) Posterior oropharynx with cobblestoning and erythema, no exudates or ulcers. TMs normal, Moist mucosa NECK: Normal ROM, supple, no lymphadenopathy, JVD, or masses LUNGS: Breath sounds equal, clear to auscultation bilaterally. No wheezes, and no crackles HEART: Regular rate and rhythm, normal S1 and S2, no murmurs, rubs or gallops ABDOMEN: Soft, nontender, normoactive bowel sounds. No guarding, no rebound. No masses EXTREMITIES: Normal range of motion, no edema. No clubbing or cyanosis. No cords, erythema, or tenderness NEUROLOGICAL: Cranial nerves II through XII grossly intact. Normal speech. SKIN: Warm, Dry, normal turgor, no rashes or lesions noted." ED Treatment Course - LABORATORY CBC & Chemistry Diagram: 05/02/17 10:40 05/02/17 10:40 - ADDITIONAL ORDERS Additional order review: Laboratory Results 05/02/17 10:40 Sodium 139 Potassium 4.1 Chloride 104 Carbon Dioxide 25 Anion Gap 10 BUN 6 L Creatinine 0.5 L Creat Clearance w eGFR > 60 Random Glucose 79 Calcium 8.5 Total Bilirubin 0.2 AST 24 D ALT 23 D Alkaline Phosphatase 74 D Total Protein 6.3 L Albumin 2.7 L 05/02/17 11:23 Influenza Types A,B Antigen (FRANCESCO) - Final Nasopharyngeal Swab - Final 05/02/17 11:23 Group A Strep Rapid Antigen - Final Throat 05/02/17 10:40 RBC 3.44 L MCV 97.1 H MCHC 33.9 RDW 13.1 MPV 8.1 Neutrophils % 76.4 Lymphocytes % 14.3 Monocytes % 5.2 Eosinophils % 3.8 D Basophils % 0.3 - RADIOLOGY Radiology Studies Ordered: Category Date Time Status CHEST - PA [RAD] Stat Radiology 05/02/17 10:20 Taken - Medications Given in the ED: ED Medications Discontinued Medications Generic Name Dose Route Start Last Admin Trade Name Freq PRN Reason Stop Dose Admin Albuterol/Ipratropium 1 amp 05/02/17 10:21 05/02/17 10:30 Duoneb - NEB 05/02/17 10:22 1 amp ONCE ONE Administration Sodium Chloride 1,000 mls @ 1,000 mls/hr 05/02/17 10:21 05/02/17 10:30 Normal Saline - IV 05/02/17 11:20 1,000 mls/hr ASDIR STA Administration Medical Decision Making - Medical Decision Making 05/02/17 12:05 26 F with cough, congestion, subjective fevers x 5 days. Likely viral URI. Pt has been on amox for possible sinusitis with minimal relief. Given duration of symptoms, PNA should be ruled out. - CXR - I discussed risks/benefits of X-ray in the context of her , and pt has consented to getting it. - Rapid strep test negative. - Flu swab - Labs - IVF 05/02/17 12:20 CXR negative. Labs unremarkable. Flu swab and Rapid strep both negative. Pt well appearing, vitals normal. Clinically stable for DC at this time. *DC/Admit/Observation/Transfer Diagnosis at time of Disposition: Viral URI - Discharge Dispostion Disposition: HOME - Patient Instructions Printed Discharge Instructions: DI for Viral Upper Respiratory Infection -- Adult Additional Instructions: Drink plenty of fluids to stay hydrated. Take tylenol as needed for pain and fevers. If you experience worsening cough, chest pain, shortness of breath, or any other concerning symptoms, return to the ER immediately. - Attestations Physician Attestion: 05/02/17 12:26 I, Dr. Jose Alberto Alvarez MD, attest that this document has been prepared under my direction and personally reviewed by me in its entirety. I further attest, that it accurately reflects all work, treatment, procedures and medical decision -making performed by me.
[2017-05-02 13:08] VITALS: BP 100/50; PULSE 92; TEMP 97.6
== END 2017-05-02 12:45 | disposition home or self-care (01) ==
LOC: JER 09:32
PROC: 3E0F7GC Introduction of Other Therapeutic Substance into Respiratory Tract, Via Natural or Artificial Opening (ICD-10-PCS; principal; 2017-05-02)
PROC: 3E0337Z Introduction of Electrolytic and Water Balance Substance into Peripheral Vein, Percutaneous Approach (ICD-10-PCS; 2017-05-02)
DX: O26.892 Other specified pregnancy related conditions, second trimester (principal); Z3A.25 25 weeks gestation of pregnancy; J06.9 Acute upper respiratory infection, unspecified; J45.909 Unspecified asthma, uncomplicated
CPT/HCPCS: 36415; 71010-TC; 80053; 85025; 87070; 87430; 87804; 99282-25

== ENCOUNTER 2021-10-25 16:34 | Emergency (ER) | payer BC, OTHER ==
[2021-10-25] MEDS ORDERED: SODIUM CHLORIDE 0.9% 500 ML INFUS.BAG IV ONE (17:06)
[2021-10-25 17:11] VITALS: BP 109/71; PULSE 69; TEMP 97.7; BMI 22.8
[2021-10-25 17:41] LABS: BASO % 0.3 % (0-2.0); EOS % 0.3 % (0-4.5); HEMATOCRIT 40.2 % (32.4-45.2); HEMOGLOBIN 13.7 GM/dL (10.7-15.3); LYMPH % 14.8 % (8-40); MCH 31.4 pg (25.7-33.7); MCHC 34.1 g/dl (32.0-36.0); MEAN CELL VOLUME 92.1 fl (80-96); NEUT % 80.6 % (42.8-82.8); PLATELET COUNT 283 10^3/uL (134-434); RBC 4.37 M/mm3 (3.60-5.2); RDW 12.7 % (11.6-15.6); WHITE BLOOD COUNT 12.7 K/mm3 (4.0-10.0)
[2021-10-25 18:02] LABS: ALBUMIN 3.8 g/dl (3.4-5.0); BLOOD UREA NITROGEN 11.2 mg/dL (7-18); CALCIUM 8.5 mg/dL (8.5-10.1)
[2021-10-25 18:05] LABS: CREATININE 0.7 mg/dL (0.55-1.3)
[2021-10-25 18:07] LABS: BILIRUBIN,TOTAL 0.2 mg/dL (0.2-1); TOT PROT 7.2 g/dl (6.4-8.2)
== END 2021-10-25 18:37 | disposition home or self-care (01) ==
LOC: JER 16:34
DX: R55 Syncope and collapse (principal)
CPT/HCPCS: 36415; 80053; 82962; 84703; 85025; 93005; 93010; 99284-25